=== PATIENT | female | born 2000 | race Caucasian/White ===

== ENCOUNTER 2022-09-18 21:48 | Emergency (ER) | payer BC ==
[2022-09-18] MEDS ORDERED: LORazepam 2 MG/ML SDV IVPUSH ONE ×2 (21:52→22:16)
[2022-09-18] MEDS ORDERED: Sodium Chloride 0.9% 1,000 ML IV ONE (22:08)
[2022-09-18 22:32] LABS: ACETAMINOPHEN <2.0 ug/mL; ALANINE AMINOTRANSFERASE,ALT 56 IU/L (14-63); ALBUMIN 4.2 g/dL (3.4-5.0); ALKALINE PHOSPHATASE 108 U/L (46-116); ASPARTATE AMNIOTRANSFERASE,AST 24 IU/L (15-37); BILIRUBIN TOTAL 0.2 mg/dL (0.2-1.0); BLOOD UREA NITROGEN,BUN 8 mg/dL (7.0-18.0); CALCIUM 8.8 mg/dL (8.5-10.1); CARBON DIOXIDE,CO2 20.2 mmol/L (21.0-32.0); CHLORIDE,CL 108 mmol/L (98-107); ETHANOL BLOOD MEDICAL 209 mg/dL; GLUCOSE RANDOM 112 mg/dL (74-106); MAGNESIUM 2.2 mg/dL (1.8-2.4); PROTEIN TOTAL,TP 8.5 g/dL (6.4-8.2); SALICYLATE 1.4 mg/dL (0.0-20.0); SODIUM,NA 146 mmol/L (136-145)
[2022-09-18 22:34] LABS: ESTIMATED GFR 82 mL/min (>60)
[2022-09-18] MEDS ORDERED: Ondansetron 4 MG/2 ML SDV IVPUSH ONE (22:47)
[2022-09-18] MEDS ORDERED: Ondansetron 4 MG Tab.DIS PO STA (23:46)
== END 2022-09-18 23:50 | disposition home or self-care (01) ==
LOC: MW.ED 21:48
DX: F10.129 Alcohol abuse with intoxication, unspecified (principal); K21.9 Gastro-esophageal reflux disease without esophagitis; Z79.899 Other long term (current) drug therapy; Y90.7 Blood alcohol level of 200-239 mg/100 ml
CPT/HCPCS: 36415; 80053; 80143; 80179; 80307; 83735; 84703; 93005; 96361; 96374; 96375; 99284; A9270; J2060; J2405; J7030; 93010